=== PATIENT | female | born 2000 | race Caucasian/White ===

== ENCOUNTER 2018-09-23 00:26 | Outpatient (CLI) | payer OTHER ==
[2018-09-23] MEDS ORDERED: AMPICILLIN SODIUM 2 GM in NORMAL SALINE 100 ML IV SCH (01:00)
[2018-09-23] MEDS ORDERED: BETAMET ACET/BETAMET NA INJ 6 MG/1 ML ONE (01:03)
[2018-09-23] MEDS ORDERED: MAGNESIUM SULFATE 4 GM/100 ML RTUPB IV ONE ×2 (01:04→01:07)
[2018-09-23] MEDS ORDERED: AMPICILLIN SOD INJ 2 GM VIAL ONE (01:04)
[2018-09-23] MEDS ORDERED: MAGNESIUM SULFATE 20 GM/500 ML RTUINJ IV ONE (01:04)
[2018-09-23] MEDS ORDERED: BETAMET ACET/BETAMET NA INJ 6 MG/1 ML IM ONE (01:06)
[2018-09-23] MEDS ORDERED: MAGNESIUM SULFATE 20 GM/500 ML RTUINJ IV PRN (01:07)
[2018-09-23] MEDS ORDERED: RINGERS SOLUTION,LACTATED 1,000 ML IV PRN (01:12)
[2018-09-23] MEDS ORDERED: RINGERS SOLUTION,LACTATED 1,000 ML IV ONE (01:12)
[2018-09-23 01:17] LABS: APPEARANCE,URINE CLEAR; BILIRUBIN,URINE NEGATIVE (NEGATIVE); COLOR,URINE COLORLESS; GLUCOSE, URINE NEGATIVE (NEGATIVE); KETONES,URINE TRACE mg/dL (NEGATIVE); LEUKOCYTE ESTERASE,URINE NEGATIVE (NEGATIVE); NITRITE,URINE NEGATIVE (NEGATIVE); PROTEIN,URINE NEGATIVE (NEGATIVE); URINE SPECIFIC GRAVITY 1.005; UROBILINOGEN,URINE NEGATIVE mg/dL (<2.0)
[2018-09-23] MEDS ORDERED: AMPICILLIN SOD INJ 2 GM VIAL IV PRN (01:18)
[2018-09-23] MEDS ORDERED: ERYTHROMYCIN BASE 250 MG TABLET PO ONE ×2 (01:25→01:31)
[2018-09-23 01:31] LABS: URINE AMPHETAMINES SCREEN NEGATIVE; URINE BARBITURATES SCREEN NEGATIVE; URINE BENZODIAZEPINES SCREEN NEGATIVE; URINE MARIJUANA (THC) SCREEN NEGATIVE; URINE METHADONE SCREEN NEGATIVE; URINE PHENCYCLIDINE SCREEN NEGATIVE
[2018-09-23 01:35] LABS: URINE COCAINE SCREEN NEGATIVE
[2018-09-23 01:43] LABS: ABSOLUTE EOSINOPHILS # (AUTO) 0.2 10^3/uL (0.0-0.6); ABSOLUTE LYMPHOCYTES (AUTO) 2.1 10^3/uL (0.5-4.7); ABSOLUTE MONOCYTES (AUTO) 0.5 10^3/uL (0.1-1.4); ABSOLUTE NEUT (AUTO) 5.7 10^3/uL (1.7-8.2); BASOPHILS % (AUTO) 0.2 % (0-2); EOSINOPHILS % (AUTO) 1.8 % (0-6); HEMOGLOBIN 10.2 g/dL (12.0-15.5); MEAN CORPUSCULAR HEMOGLOBIN 31.5 pg (27.0-33.4); MEAN CORPUSCULAR HGB CONC 35.1 g/dL (32.0-36.0); MEAN CORPUSCULAR VOLUME 90 fl (80-97); MONOCYTES % (AUTO) 6.3 % (3-13); PLATELET COUNT 174 10^3/uL (150-450); RED BLOOD COUNT 3.23 10^6/uL (3.72-5.28); SEGMENTED NEUTROPHILS % (AUTO) 66.7 % (42-78); TOTAL CELLS COUNTED % (AUTO) 100 %; WHITE BLOOD COUNT 8.6 10^3/uL (4.0-10.5)
[2018-09-23 01:48] LABS: FIBRINOGEN 303 mg/dL (209-497); INTERNATIONAL RATION (INR) 0.95; PARTIAL THROMBOPLASTIN TIME 25.8 SEC (23.5-35.8); PROTHROMBIN TIME 13.2 SEC (11.4-15.4)
--- NOTE | 2018-09-23 01:50 | PDOC TRANSFER SUMMARY ---
General Admission Date/PCP: 09/23/2018 Admission Date: 09/23/18 Transfer Date: 09/23/18 Accepting Facility: [facility] Accepting Physician: Dr. Castro Resuscitation Status: Full Code - Transfer Diagnosis (1) Dichorionic diamniotic twin in second trimester Is this a current diagnosis for this admission?: Yes Diagnosis Summary: Di/Di TIUP with JACOBY per limited records 01/14/2019. Limited records from [facility] will be sent with patient and as our labs are available will also be sent with patient. (2) premature rupture of membranes Is this a current diagnosis for this admission?: Yes Diagnosis Summary: PPROM at approx midnight 09/23/2018 after fall in bathtub onto side (left) at approx 2300. She reports awaking with large amount of fluid leaking. On Exam SSE/SVE: possible prolapsing membranes and cvx approx 1cm, blood tinged fluid and fern patter present. Pt per reports ED 01/14/2019 and 23+5ega. Stat bedside US for presentation/fluid/weights/etc done. Report pending. Pt desires all measures to be done. No ctx or abdominal pain at this time. Abruption panel ordered - no abdominal pain, no zay bleeding, only pink tinged amniotic fluid, but history of fall in bathtub see HPI Magnesium Sulfate 4gram load and 2 gram per hour. Ampicillin 2g IV Q 6hours Erythomycin 500mg po x 1 dose (no IV available at this hospital) Celestone 12mg x 1 now - Transfer Medications Home Medications: Vits96/Iron Fum/Folic [ Tablet] 1 each PO DAILY 09/23/18 Transfer Medications: Current Medications Ampicillin Sodium (Omnipen Inj 2 Gm Vial) 2 gm IV ASDIR PRN Stop: 09/23/18 08:00 Magnesium Sulfate (Magnesium Sulfate Rtu 4 Gm/100 Ml Premix Bag) 4 gm in 100 mls @ 25 mls/hr IV NOW ONE Stop: 09/23/18 05:06 Magnesium Sulfate (Magnesium Sulfate Rtu 20 Gm/500 Ml Premix) 20 gm in 500 mls @ 0 mls/hr IV CONTINUOUS PRN; As Directed PRN Reason: THIS MED IS NOT "PRN" Stop: 10/23/18 01:06 Ampicillin Sodium 2 gm/ Sodium (Chloride) 100 mls @ 200 mls/hr IV Q6H EPIFANIO Stop: 09/30/18 00:59 Lactated Ringer's (Lactated Ringers 1000 Ml Iv Soln) 1,000 mls @ 125 mls/hr IV CONTINUOUS PRN PRN Reason: THIS MED IS NOT "PRN" Stop: 10/23/18 01:11 - Allergies Allergies/Adverse Reactions: No Known Allergies Allergy (Unverified 09/23/18 01:01) - Diet/Activity Discharge Diet: As Tolerated Discharge Activity: Bedrest Hospital Course Hospital Course: 18yo at 23+5ega wit DC/DA TIUP presents after awakening in pool of fluid after midnight. She reports that after she fell in shower (caught herself on left side - no visible bruising) - did not hit abdomen at approx 2300. She denies cramping or contractions. Pt reports uncomplicated to date and is followed at [facility] - records requested. Exam and labs c/w PPROM and transfer accepted to early ega and periviable . Physical Exam Vital Signs: Intake & Output 09/21/18 09/22/18 09/23/18 06:59 06:59 06:59 Weight 148.4 kg General appearance: PRESENT: no acute distress, well-developed, well-nourished Head exam: PRESENT: atraumatic, normocephalic Respiratory exam: PRESENT: clear to auscultation maira. ABSENT: rales, rhonchi, wheezes Cardiovascular exam: PRESENT: RRR. ABSENT: diastolic murmur, rubs, systolic murmur Vascular exam: PRESENT: normal capillary refill GI/Abdominal exam: PRESENT: normal bowel sounds, soft. ABSENT: distended, guarding, mass, organolmegaly, rebound, tenderness Rectal exam: PRESENT: deferred Extremities exam: PRESENT: full ROM. ABSENT: calf tenderness, clubbing, pedal edema Neurological exam: PRESENT: alert, awake, oriented to person, oriented to place , oriented to time, oriented to situation, CN II-XII grossly intact. ABSENT: motor sensory deficit Psychiatric exam: PRESENT: appropriate affect, normal mood. ABSENT: homicidal ideation, suicidal ideation Skin exam: PRESENT: dry, intact, warm. ABSENT: cyanosis, rash Results Laboratory Results: 09/23/18 00:56 Urine Color COLORLESS Urine Appearance CLEAR Urine pH 7.0 Ur Specific [place] 1.005 Urine Protein NEGATIVE Urine Glucose (UA) NEGATIVE Urine Ketones TRACE H Urine Blood NEGATIVE Urine Nitrite NEGATIVE Ur Leukocyte Esterase NEGATIVE Urine WBC (Auto) 0 Urine RBC (Auto) 1 Fern testing: fern pattern present Plan Discharge Plan: Transfer to [facility] for higher level acuity and NICU capability Time Spent: Greater than 30 Minutes
[2018-09-23 02:00] LABS: ALANINE AMINOTRANSFERASE 22 U/L (9-52); ALBUMIN 3.2 g/dL (3.5-5.0); ALKALINE PHOSPHATASE 59 U/L (38-126); ANION GAP 10 (5-19); ASPARTATE AMINO TRANSFERASE 18 U/L (14-36); BILIRUBIN,DIRECT 0.1 mg/dL (0.0-0.4); BILIRUBIN,TOTAL 0.2 mg/dL (0.2-1.3); BLOOD UREA NITROGEN 4 mg/dL (7-20); CALCIUM 8.7 mg/dL (8.4-10.2); CARBON DIOXIDE 23 mmol/L (22-30); CHLORIDE 107 mmol/L (98-107); GLUCOSE 108 mg/dL (75-110); POTASSIUM 3.3 mmol/L (3.6-5.0); SODIUM 139.5 mmol/L (137-145)
--- NOTE | 2018-09-23 02:48 | RADIOLOGY REPORT (SQ) ---
CLINICAL HISTORY: possible pprom, Twins, need EFW, position, fluid COMPARISON: None. TECHNIQUE: US LIMITED on 09/23/2018 12:00 AM [facility] FINDINGS: Cervix is closed, measuring 3 cm. There is a twin . Twin A: Biparietal diameter measures 5.79 cm corresponding to 23 weeks five days. Head circumference measures 21.9 cm corresponding to 23 weeks six days. Abdominal circumference measures 18.4 cm corresponding to 23 weeks two days. Femur length measures 4.2 cm on April 23 weeks five days. heart rate is 150 bpm. Amniotic fluid is borderline low, with the largest pocket measuring 2.2 cm. Placenta is anterior and is otherwise unremarkable. Estimated weight is 600 g, 37th percentile. Twin B: Biparietal diameter measures 5.8 cm corresponding to 23 weeks five days. Head circumference measures 21.7 cm corresponding to 23 weeks five days. Abdominal circumference measures 18.9 cm corresponding to 23 weeks five days. Femur length measures 4.2 cm corresponding to 23 weeks five days. heart rate is 153 bpm. MICHAEL is normal with largest pocket measuring 4.5 cm. Estimated weight is 620 g, 40th percentile. IMPRESSION: Live twin gestations with the borderline low fluid surrounding twin A. Adequate heart rate.
== END 2018-09-23 02:48 | disposition short-term general hospital (02) ==
LOC: LC 00:26
PROVIDERS: ATTEND Student in an Organized Health Care Education/Training Program
DX: O42.912 Preterm premature rupture of membranes, unspecified as to length of time between rupture and onset of labor, second trimester (principal); Z3A.23 23 weeks gestation of pregnancy
CPT/HCPCS: 94760; 96372; 36415; 85025; 85384; 85362; 85610; 85730; 80053; 81001; 80307; 76815; Q0114; J3475 ×2; J0290; J3490; J0702